=== PATIENT | female | born 1985 | race Caucasian/White ===

== ENCOUNTER 2019-02-02 22:44 | Emergency (ER) | payer MEDICAID ==
[~2019-02-02] VITALS: Ht 160 cm; Wt 75.2 kg
[~2019-02-02 22:44] MED LIST: PREN1TAB13 PO
[2019-02-02 23:00] VITALS: Ht 160 cm; Wt 75.2 kg
[2019-02-03] MEDS ORDERED: DEXAMETHASONE 10 MG/ML 1 ML INJ IM ONE
[2019-02-03] MEDS ORDERED: DIPHENHYDRAMINE 2.5 MG/ML 5ML CUP PO ONE
[2019-02-03] MEDS ORDERED: DIPH25CA6 PO (00:11)
[2019-02-03 00:38] VITALS: BP 151/101; PULSE 70; RESP 16
--- NOTE | 2019-02-03 00:59 | ERD ---
ER Documentation Chief Complaint Chief Complaint hives to arms/abd/back [id number] comes and goes, airway patent able, -wheezin HPI History of Present Illness: 33-year-old female who denies a past medical history coming today due to complaint of rash. Patient denies any other associated symptoms. Reports regimen present intermittently for over the past 7 days. At home pharmacological/nonpharmacological treatment for symptoms: Denies Denies social concerns; Denies recent foreign travel ROS All systems reviewed and are negative except as per history of present illness. Medications Home Meds Active Scripts Diphenhydramine Hcl* (Diphenhydramine Hcl*) 25 Mg Capsule, 25 MG PO Q6 PRN for ITCHING/RASH, #30 CAP Prov:DAVID FLYNN V [employer] 02/03/19 Reported Medications Pnv95/Ferrous Fumarate/FA ( Vitamins Tablet) 1 Each Tablet, 1 EACH PO, TAB 08/20/18 Allergies Allergies: Coded Allergies: No Known Allergy (Unverified , 08/21/18) PMhx/Soc History of Surgery: Yes ( ) Hx Alcohol Use: No Hx Substance Use: No Hx Tobacco Use: No Smoking Status: Never smoker Physical Exam Vitals Vital Signs Date Temp Pulse Resp B/P (MAP) Pulse Ox O2 O2 Flow FiO2 Time Delivery Rate 02/03/19 97.9 70 16 151/101 99 Room Air 00:38 (118) 02/02/19 98.3 79 20 158/100 100 23:00 (119) Physical Exam Const: No acute distress, afebrile Head: Atraumatic Eyes: Normal Conjunctiva ENT: Normal External Ears, Nose and Mouth. Neck: Full range of motion. No meningismus. Resp: Clear to auscultation bilaterally. No increased respiratory effort. Cardio: Regular rate and rhythm, no murmurs Abd: Soft, non tender, non distended. No guarding, no masses, no rigidity Skin: No petechiae; marked raised areas of erythema, blanchable, consistent with HIVES Back: No midline or flank tenderness Ext: No cyanosis, or edema Neur: Awake and alert x3, speaking in clear sentences, no focal deficits or facial asymmetry Psych: Normal Mood and Affect Results 24 hrs Current Medications Medications Dose Sig/Belen Start Time Status Last (Trade) Ordered Route PRN Stop Time Admin Dose Reason Admin 10 mg ONCE ONCE 02/03/19 DC 02/03/19 Dexamethasone IM 00:00 00:02 (Decadron) 02/03/19 00:01 50 mg ONCE ONCE 02/03/19 DC 02/03/19 Diphenhydrami PO 00:00 00:02 ne HCl 02/03/19 00:01 (Benadryl Liquid Cup) Procedures/MDM ED COURSE: ED course includes a thorough examination and history. The patient was stable throughout ED course. I kept the patient and/or family informed of laboratory and diagnostic imaging results throughout the ED course. MEDICATIONS GIVEN IN ER: Dexamethasone, diphenhydramine Patient tolerated medication well with no adverse reactions. MEDICAL DECISION MAKING: Low suspicion for life-threatening medical emergency. Low suspicion for airway compromise. Low suspicion for life-threatening dermatological emergency. Otherwise healthy patient presenting with constellation of symptoms likely representing uncomplicated acute urticaria/as characterized by history, physical exam findings . Patient reassessment @ 0030: Patient medicated, mild decrease in rash. Still no signs of respiratory distress. Patient hemodynamically stable. No respiratory distress, otherwise relatively well appearing and nontoxic. Disposition given. Patient educated on diagnoses, prescriptions, follow-up care, return precautions. Strict return precautions given for worsening condition; questions answered discharge. Patient verbalizes understanding of discharge instructions. PRESCRIPTIONS FOR HOME: Diphenhydramine DISPOSITION: DISCHARGE At this time, patient is stable for discharge and outpatient management. I have instructed the patient to follow-up with his/her primary care physician in 1-2 days. I have discussed with the patient the possibility of needing to see a specialist for further workup and imaging studies if symptoms persist. I have instructed the patient to promptly return to the ER for any new or worsening symptoms including increased pain, fever, nausea, vomiting, weakness or LOC. The patient and/or family expressed understanding of and agreement with this plan. All questions were answered. Home care instructions were provided. DISCLAIMER: Inadvertent spelling and grammatical errors are likely due to EHR/dictation software use and do not reflect on the overall quality of patient care. Also, please note that the electronic time recorded on this note does not necessarily reflect the actual time of the patient encounter. Departure Diagnosis: Primary Impression: Acute urticaria Condition: Stable Patient Instructions: [facility]errals: [facility] YOU HAVE RECEIVED A MEDICAL SCREENING EXAM AND THE RESULTS INDICATE THAT YOU DO NOT HAVE A CONDITION THAT REQUIRES URGENT TREATMENT IN THE EMERGENCY DEPARTMENT. FURTHER EVALUATION AND TREATMENT OF YOUR CONDITION CAN WAIT UNTIL YOU ARE SEEN IN YOUR DOCTORS OFFICE WITHIN THE NEXT 1-2 DAYS. IT IS YOUR RESPONSIBILITY TO MAKE AN APPOINTMENT FOR FOLOW-UP CARE. IF YOU HAVE A PRIMARY DOCTOR --you should call your primary doctor and schedule an appointment IF YOU DO NOT HAVE A PRIMARY DOCTOR YOU CAN CALL OUR PHYSICIAN REFERRAL HOTLINE AT IF YOU CAN NOT AFFORD TO SEE A PHYSICIAN YOU CAN CHOSE FROM THE FOLLOWING [facility] [address] [facility] [address] [facility] [address] [facility] [address] [facility] [address] [facility] [address] [facility]. [facility] YOU HAVE RECEIVED A MEDICAL SCREENING EXAM AND THE RESULTS INDICATE THAT YOU DO NOT HAVE A CONDITION THAT REQUIRES URGENT TREATMENT IN THE EMERGENCY DEPARTMENT. FURTHER EVALUATION AND TREATMENT OF YOUR CONDITION CAN WAIT UNTIL YOU ARE SEEN IN YOUR DOCTORS OFFICE WITHIN THE NEXT 1-2 DAYS. IT IS YOUR RESPONSIBILITY TO MAKE AN APPOINTMENT FOR FOLOW-UP CARE. IF YOU HAVE A PRIMARY DOCTOR --you should call your primary doctor and schedule and appointment IF YOU DO NOT HAVE A PRIMARY DOCTOR YOU CAN CALL OUR PHYSICIAN REFERRAL HOTLINE AT . IF YOU CAN NOT AFFORD TO SEE A PHYSICIAN YOU CAN CHOSE FROM THE FOLLOWING [facility]: [facility] [address] [place] [address] [facility] [address] [place] [address] [facility] [address] [place] [address] Additional Instructions: Thank you very much for allowing us to participate in your care. Your health and safety is our top priority at [facility]. It is important to read all discharge instructions and education provided in your discharge packet. *Your primary care doctor can refer you to spring floor service worker for further evaluation and testing of certain allergens* Call your primary care doctor TOMORROW for an appointment during the next 2-4 days and bring all the information and medications prescribed. Have prescriptions filled and follow precisely the directions on the label. If the symptoms get worse and your provider is unavailable, return to the Emergency Department immediately. DAVID FLYNN NP Feb 03, 2019 00:59
== END 2019-02-03 00:37 | disposition home or self-care (01) ==
LOC: FTE 22:44
DX: L50.9 Urticaria, unspecified (principal)
CPT/HCPCS: 96372; J1100; Z7502; Z7610